=== PATIENT | female | born 1995 | race African-American/Black ===

== ENCOUNTER 2018-10-31 21:20 | Emergency (ER) | payer SELFPAY ==
[~2018-10-31] VITALS: Ht 167.6 cm; Wt 55.0 kg
[2018-10-31 21:34] VITALS: BP 130/81; PULSE 82; RESP 19; Ht 167.6 cm; Wt 55.0 kg
--- NOTE | 2018-10-31 21:36 | ERD ---
ER Documentation Chief Complaint Chief Complaint BIB RA FROM HOME FOR ACCIDENTAL OVERDOSE ON HPI 23-year-old female brought in by ambulance from a constitution party. Reportedly she took 4 tablets of Percocet prior to arrival. However the patient is denying taking any pills. She states that she was drinking alcohol and likely passed out. She is not sure who called ambulance. She will not tell me who she was with. She adamantly denies using any type of drugs and only drinks alcohol. ROS All systems reviewed and are negative except as per history of present illness. PMhx/Soc Medical and Surgical Hx: pt denies Medical Hx Hx Alcohol Use: Yes FmHx Unable to obtain Physical Exam Vitals Vital Signs Date Temp Pulse Resp B/P (MAP) Pulse Ox O2 O2 Flow FiO2 Time Delivery Rate 10/31/18 98.1 82 19 126/65 100 21:34 (85) 10/31/18 98.1 82 19 130/81 100 21:34 (97) Physical Exam Const: No acute distress, normal speech, nontoxic Head: Atraumatic Eyes: Normal Conjunctiva ENT: Normal External Ears, Nose and Mouth. Neck: Full range of motion. Resp: No respiratory distress Skin: No petechiae or rashes Back: No midline or flank tenderness Ext: No cyanosis, or edema Neur: Awake and alert, oriented x3, no facial asymmetry, moving all extremities. Ambulating with steady gait Psych: A little agitated due to situation. Result Diagram: 10/31/18215510/31/182155 Results 24 hrs Laboratory Tests Test 10/31/18 21:56 White Blood Count 5.9 10^3/ul Red Blood Count 4.65 10^6/ul Hemoglobin 14.0 g/dl Hematocrit 41.8 % Mean Corpuscular Volume 89.9 fl Mean Corpuscular Hemoglobin 30.1 pg Mean Corpuscular Hemoglobin Concent 33.5 g/dl Red Cell Distribution Width 12.8 % Platelet Count 289 10^3/UL Mean Platelet Volume 9.5 fl Immature Granulocytes % 0.200 % Neutrophils % 64.2 % Lymphocytes % 26.6 % Monocytes % 7.7 % Eosinophils % 0.5 % Basophils % 0.8 % Nucleated Red Blood Cells % 0.0 /100WBC Immature Granulocytes # 0.010 10^3/ul Neutrophils # 3.8 10^3/ul Lymphocytes # 1.6 10^3/ul Monocytes # 0.5 10^3/ul Eosinophils # 0.0 10^3/ul Basophils # 0.1 10^3/ul Nucleated Red Blood Cells # 0.0 10^3/ul Sodium Level 148 mmol/L Potassium Level 4.2 mmol/L Chloride Level 110 mmol/L Carbon Dioxide Level 27 mmol/L Anion Gap 11 Blood Urea Nitrogen 14 mg/dl Creatinine 0.90 mg/dl Est Glomerular Filtrat Rate mL/min > 60 mL/min Glucose Level 101 mg/dl Calcium Level 9.0 mg/dl Total Bilirubin 0.3 mg/dl Direct Bilirubin 0.00 mg/dl Indirect Bilirubin 0.3 mg/dl Aspartate Amino Transf (AST/SGOT) 30 IU/L Alanine Aminotransferase (ALT/SGPT) 18 IU/L Alkaline Phosphatase 57 IU/L Total Protein 8.2 g/dl Albumin 4.7 g/dl Globulin 3.50 g/dl Albumin/Globulin Ratio 1.34 Salicylates Level < 1.0 mg/dl Acetaminophen Level < 10.0 ug/ml Ethyl Alcohol Level Pending Procedures/MDM EMERGENT LABS AND DIAGNOSTIC STUDIES: Lab Results above were reviewed and interpreted by me. CBC: no anemia or evidence of infection CMP: Mild hypernatremia, likely secondary to dehydration. No evidence of clinically significant electrolyte abnormality, acidosis, renal failure, hypoglycemia, liver disease, or biliary obstruction Acetaminophen and salicylate levels within normal limits EtOH: Significantly elevated blood alcohol level, consistent with acute intoxication Initial Nursing notes reviewed. Previous Medical Records requested via the Electronic Health Record. EMERGENCY DEPARTMENT COURSE / MEDICAL DECISION MAKING: Patient presented intoxicated but was conversing normally with me. She adamantly denies taking any type of drug except alcohol. She denies taking Percocet. She states that she has never used Percocet. She is not sure how that story came about. She is hemodynamically stable. She agreed to blood work. I recommended that she wait until friends or family arrived to pick her up. She states that she feels fine and would like to leave. Security was called to bedside to observe the patient while she contacted a family member. However the patient reportedly eloped. When I saw the patient, she was ambulating with a steady gait. For this reason, please are not called to bring the patient back. Departure Diagnosis: Primary Impression: Alcohol intoxication Complication of substance-induced condition: uncomplicated Qualified Codes: F10.920 - Alcohol use, unspecified with intoxication, uncomplicated Condition: Fair ROHAN GAUTHIER MD Oct 31, 2018 21:36
== END 2018-10-31 22:49 | disposition left against medical advice (07) ==
LOC: E/R 21:20
DX: T39.1X1A Poisoning by 4-Aminophenol derivatives, accidental (unintentional), initial encounter (principal); F10.920 Alcohol use, unspecified with intoxication, uncomplicated
CPT/HCPCS: 36415; 80053; 80307; 85025; 99283